=== PATIENT | male | born 1945 | race Caucasian/White ===

== ENCOUNTER 2022-07-30 14:06 | Emergency (ER) | payer MEDICARE, OTHER ==
[~2022-07-30] VITALS: Wt 80.3 kg
[~2022-07-30 14:06] MED LIST: ASPIRIN81 M1 PO; Carafate1 GM PO; FUROSEMIDE20 M1 PO; GLYXAMBI 10 MG1 EACH PO; METFORMIN HYD1000 MG PO; MIDODRINE HCL5 M1 PO; NITROSTAT0.3 M1 SL; PANTOPRAZOLE SO40 MG PO; PHARMASSURE V500 MCG PO; VITAMIN D310 MCG PO; ZOCOR20 MG PO
[2022-07-30 14:37] LABS: ARTERIAL BLOOD GAS PH 7.206 (7.35-7.45); ARTERIAL BLOOD GAS PO2 142.4 (80-90)
[2022-07-30 14:40] LABS: ABG BASE EXCESS -17.9 mmol/L (-2.0-2.0)
[2022-07-30 16:27] LABS: MEAN CORPUSCULAR HGB 28.1 pg (27.0-31.0); MEAN CORPUSCULAR HGB CONC 27.6 g/dl (33.0-37.0); MEAN PLATELET VOLUME 11.3 fl (9.6-12.3); NUCLEATED RED BLOOD CELL 0.1 10*3/uL (0.0-0.0); NUCLEATED RED BLOOD CELL 0.5 % (0.0-0.0); PLATELET COUNT AUTOMATED 150 10*3/uL (130-400); RED BLOOD COUNT 1.99 10*6/uL (4.50-5.90); WHITE BLOOD COUNT 21.9 10*3/uL (4.8-10.8)
[2022-07-30 16:39] LABS: HEMATOCRIT 20.3 % (42.0-52.0); MANUAL DIFF REFLEX YES
[2022-07-30 16:42] LABS: ALKALINE PHOSPHATASE 99 U/L (46-116); BUN 31 mg/dl (9-23); CHLORIDE 103 mmol/L (98-107); POTASSIUM 4.4 mmol/L (3.4-5.1); SGPT/ALT 44 U/L (10-49)
[2022-07-30 16:53] LABS: ACT PARTIAL THROMBO TIME 25.6 SECONDS (20.0-32.1); INTERNATIONAL NORM RATIO 1.7 (2.0-3.5)
[2022-07-30 17:11] LABS: TOTAL CELLS COUNTED 100 #CELLS
[2022-07-30 17:12] LABS: BURR CELLS MODERATE; PLATELET SUFFICIENCY NORMAL (NORMAL); POLYCHROMASIA MODERATE
[2022-07-30 19:05] LABS: HEMATOCRIT 28.1 % (42.0-52.0); MANUAL DIFF REFLEX YES; MEAN CELL VOLUME 99.6 fl (80.0-94.0); MEAN CORPUSCULAR HGB 29.8 pg (27.0-31.0); MEAN CORPUSCULAR HGB CONC 29.9 g/dl (33.0-37.0); MEAN PLATELET VOLUME 11.7 fl (9.6-12.3); NUCLEATED RED BLOOD CELL 0.1 10*3/uL (0.0-0.0); NUCLEATED RED BLOOD CELL 0.6 % (0.0-0.0); PLATELET COUNT AUTOMATED 127 10*3/uL (130-400); RED BLOOD COUNT 2.82 10*6/uL (4.50-5.90); RED CELL DISTRI WIDTH 15.4 % (0-14.5)
[2022-07-30 19:25] LABS: PLATELET SUFFICIENCY NORMAL (NORMAL); POLYCHROMASIA MODERATE; TOTAL CELLS COUNTED 100 #CELLS
[2022-07-30 19:26] LABS: BURR CELLS MODERATE
[2022-07-30 19:43] VITALS: BP 70/28
[2022-07-30 20:00] VITALS: BP 79/31
[2022-07-30 20:15] VITALS: BP 71/36
[2022-07-30 20:30] VITALS: BP 80/34
[2022-07-30 20:45] VITALS: BP 82/35
[2022-07-30 21:07] VITALS: BP 81/26
== END 2022-07-30 21:15 | disposition short-term general hospital (02) ==
LOC: ED 14:06
PROVIDERS: Student in an Organized Health Care Education/Training Program
DX: K92.2 Gastrointestinal hemorrhage, unspecified (principal); R18.8 Other ascites; Z88.0 Allergy status to penicillin; Z79.899 Other long term (current) drug therapy; Z79.82 Long term (current) use of aspirin